=== PATIENT | female | born 1995 | race American Indian/Alaskan Native ===

== ENCOUNTER 2016-10-09 06:43 | Emergency (ER) | payer SELFPAY ==
[2016-10-09] MEDS ORDERED: TYLENOL PO ONE (06:55)
[2016-10-09] MEDS ORDERED: ZOFRAN ONE (07:41)
[2016-10-09] MEDS ORDERED: NACL 0.9% 500 ML 500 ML ONE (07:41)
[2016-10-09] MEDS ORDERED: ZOFRAN IV ONE (07:54)
[2016-10-09] MEDS ORDERED: NACL 0.9% 500 ML 500 ML IV ONE (07:54)
[2016-10-09 08:01] LABS: Basophils % (Auto) 0.3 % (0.0-1.8); Eosinophils % (Auto) 0.5 % (0.0-4.3); Hematocrit 32.5 % (30.3-42.9); Hemoglobin 10.7 gm/dl (10.1-14.3); Mean Corpuscular HGB Conc 33 % (30-34); Mean Corpuscular Volume 71 fl (79-97); Platelet Count 408 K/mm3 (140-440); Red Blood Count 4.59 M/mm3 (3.65-5.03); Red Cell Distribution Width 17.5 % (13.2-15.2); White Blood Count 9.7 K/mm3 (4.5-11.0)
[2016-10-09 08:05] LABS: Mean Corpuscular Hemoglobin 23 pg (28-32)
--- NOTE | 2016-10-09 08:42 | Emergency Department Report ---
ED Female HPI - General Chief complaint: Vaginal Bleeding Stated complaint: VAGINAL BLEEDING/POSS MISSCARRIAGE Time Seen by Provider: 10/09/16 08:41 Source: patient, RN notes reviewed Mode of arrival: Ambulatory Limitations: No Limitations - History of Present Illness Initial comments: This is a 21-year-old female. She is previously unknown to me. She is 2, para 1. Last menstrual period is August 07. 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 It got worse today at 5:00 AM. Mild nausea and vomiting, vomited times once. No chest pain or shortness of breath. No right lower quadrant pain. Patient denies irritative and obstructive urinary symptoms. Reports vaginal bleeding is improving, prior to improvement, she reports large blood and large clots. MD Complaint: vaginal bleeding, pelvic pain -: Gradual Location: suprapubic Severity: moderate Quality: cramping Consistency: intermittent Improves with: none Worsens with: none Are you Now?: Yes Associated Symptoms: vaginal bleeding, abdominal pain, nausea/vomiting. denies : vaginal discharge - Related Data Sexually active: Yes Previous Rx's Medication Instructions Recorded Last Taken Type Misoprostol [Cytotec] 400 mcg PO Q4HR #4 tablet 10/09/16 Unknown Rx Ondansetron [Zofran Odt] 4 mg PO QID PRN #20 tab.rapdis 10/09/16 Unknown Rx Ferrous Sulfate [Feosol 325 MG tab] 325 mg PO BID #60 tablet 10/11/16 Unknown Rx Allergies Allergy/AdvReac Type Severity Reaction Status Date / Time No Known Allergies Allergy Verified 10/09/16 06:50 ED Review of Systems ROS: Stated complaint: VAGINAL BLEEDING/POSS MISSCARRIAGE Other details as noted in HPI Constitutional: malaise. denies: fever Eyes: denies: vision change Respiratory: denies: cough Cardiovascular: denies: chest pain Gastrointestinal: vomiting Genitourinary: abnormal menses Musculoskeletal: denies: back pain Skin: denies: lesions Neurological: denies: headache Psychiatric: anxiety ED Past Medical Hx - Past Medical History Previous Medical History?: No - Surgical History Past Surgical History?: No - Social History Smoking Status: Current Some Day Smoker Substance Use Type: None - Medications Home Medications: Home Medications Medication Instructions Recorded Confirmed Last Taken Type Misoprostol [Cytotec] 400 mcg PO Q4HR #4 tablet 10/09/16 Unknown Rx Ondansetron [Zofran Odt] 4 mg PO QID PRN #20 tab.rapdis 10/09/16 Unknown Rx Ferrous Sulfate [Feosol 325 MG tab] 325 mg PO BID #60 tablet 10/11/16 Unknown Rx ED Physical Exam - General Limitations: No Limitations General appearance: alert, in no apparent distress - Head Head exam: Present: atraumatic, normocephalic - Eye Eye exam: Present: normal appearance, EOMI. Absent: nystagmus - ENT ENT exam: Present: normal exam, normal orophraynx, mucous membranes moist, normal external ear exam - Neck Neck exam: Present: normal inspection, full ROM. Absent: tenderness, meningismus - Respiratory Respiratory exam: Present: normal lung sounds bilaterally. Absent: respiratory distress, wheezes, rales, rhonchi, stridor, chest wall tenderness - Cardiovascular Cardiovascular Exam: Present: regular rate, normal rhythm, normal heart sounds. Absent: bradycardia, tachycardia, irregular rhythm, systolic murmur, diastolic murmur, rubs, gallop - GI/Abdominal GI/Abdominal exam: Present: soft, normal bowel sounds. Absent: distended, tenderness, guarding, rebound, rigid, pulsatile mass - External exam: Present: normal external exam Speculum exam: Present: vaginal bleeding, tissue (large clots, tissue noted in the vaginal vault. There is mild uterine tenderness.During the gynecologic exam , I am escorted by nurse Melissa Roe), other - Extremities Exam Extremities exam: Present: normal inspection, full ROM, normal capillary refill. Absent: tenderness, pedal edema, joint swelling, calf tenderness - Back Exam Back exam: Present: normal inspection, full ROM. Absent: tenderness, CVA tenderness (R), CVA tenderness (L), muscle spasm, paraspinal tenderness, vertebral tenderness - Neurological Exam Neurological exam: Present: alert, oriented X3, normal gait, other (Extraocular movements intact. Tongue midline. No facial droop. Facial sensation intact to light touch in the V1, V2, V3 distribution bilaterally. 5 and 5 strength in 4 extremities.. Sensation is intact to light touch in 4 extremities.). Absent : motor sensory deficit - Psychiatric Psychiatric exam: Present: normal affect, normal mood - Skin Skin exam: Present: warm, dry, intact, normal color. Absent: rash ED Course Vital Signs 10/09/16 10/09/16 10/09/16 06:50 07:51 12:38 Temperature 98.5 F Pulse Rate 64 69 70 Respiratory 18 18 16 Rate Blood Pressure 118/64 Blood Pressure 127/67 163/87 [Left] O2 Sat by Pulse 100 99 99 Oximetry - Reevaluation(s) Reevaluation #1: 10/09/16 12:17 Differential diagnosis: Miscarriage, inevitable miscarriage, threatened miscarriage Assessment and plan: 21-year-old female with vaginal bleeding, history of passing large clots. Her gynecologic examination, there is active oozing, and tissue noted in the vault. She is suctioned aggressively with a Yankauer catheter. There is no active large fine hemorrhage. She is hemodynamically stable with normal vital signs, normal laboratory studies. She has some uterine tenderness, I would expect this given that she is having an active miscarriage. The physical exam ultrasound findings and case are presented to the assistant purchasing manager front line supervisor, Dr. Rosenberg. He recommends misoprostel, 400 mg every 4 hours for a total of 3 doses. The patient is instructed to return in 48 hours for repeat physical exam, quantitative hCG, and pelvic ultrasound. She is instructed to avoid heavy lifting and strenuous physical activity as well as sexual activity. Return precautions were extensively reviewed. Reevaluation #2: 10/09/16 12:19 Urinalysis is appreciated, given that patient has active bleeding, clots and tissue in the vault, the WBCs in the urine most likely coming from contamination. Given the overall clinical picture, I don't believe she requires antibiotics. ED Medical Decision Making - Lab Data Result diagrams: 10/09/16 07:22 Vital Signs 10/09/16 10/09/16 06:50 07:51 Temperature 98.5 F Pulse Rate 64 69 Respiratory 18 18 Rate Blood Pressure 118/64 Blood Pressure 127/67 [Left] O2 Sat by Pulse 100 99 Oximetry Lab Results 10/09/16 10/09/16 10/09/16 Range/Units 07:22 07:22 07:22 WBC 9.7 (4.5-11.0) K/mm3 RBC 4.59 (3.65-5.03) M/mm3 Hgb 10.7 (10.1-14.3) gm/dl Hct 32.5 (30.3-42.9) % MCV 71 L (79-97) fl MCH 23 L (28-32) pg MCHC 33 (30-34) % RDW 17.5 H (13.2-15.2) % Plt Count 408 (140-440) K/mm3 Lymph % (Auto) 16.5 (13.4-35.0) % [place] % (Auto) 6.9 (0.0-7.3) % Eos % (Auto) 0.5 (0.0-4.3) % Baso % (Auto) 0.3 (0.0-1.8) % Lymph # 1.6 (1.2-5.4) K/mm3 [place] # 0.7 (0.0-0.8) K/mm3 Eos # 0.0 (0.0-0.4) K/mm3 Baso # 0.0 (0.0-0.1) K/mm3 Seg Neutrophils % 75.8 H (40.0-70.0) % Seg Neutrophils # 7.4 (1.8-7.7) K/mm3 HCG, Quant 397305 H (0-4) mIU/mL Urine Color (Yellow) Urine Turbidity (Clear) Urine pH (5.0-7.0) Ur Specific [place] (1.003-1.030) Urine Protein (Negative) mg/dL Urine Glucose (UA) (Negative) mg/dL Urine Ketones (Negative) mg/dL Urine Blood (Negative) Urine Nitrite (Negative) Urine Bilirubin (Negative) Urine Urobilinogen (<2.0) mg/dL Ur Leukocyte Esterase (Negative) Urine WBC (Auto) (0.0-6.0) /HPF Urine RBC (Auto) (0.0-6.0) /HPF U Epithel Cells (Auto) (0-13.0) /HPF Urine Bacteria (Auto) (Negative) /HPF Urine Mucus /HPF Blood Type A POSITIVE Antibody Screen Negative 10/09/16 Range/Units Unknown WBC (4.5-11.0) K/mm3 RBC (3.65-5.03) M/mm3 Hgb (10.1-14.3) gm/dl Hct (30.3-42.9) % MCV (79-97) fl MCH (28-32) pg MCHC (30-34) % RDW (13.2-15.2) % Plt Count (140-440) K/mm3 Lymph % (Auto) (13.4-35.0) % [place] % (Auto) (0.0-7.3) % Eos % (Auto) (0.0-4.3) % Baso % (Auto) (0.0-1.8) % Lymph # (1.2-5.4) K/mm3 [place] # (0.0-0.8) K/mm3 Eos # (0.0-0.4) K/mm3 Baso # (0.0-0.1) K/mm3 Seg Neutrophils % (40.0-70.0) % Seg Neutrophils # (1.8-7.7) K/mm3 HCG, Quant (0-4) mIU/mL Urine Color Yellow (Yellow) Urine Turbidity Clear (Clear) Urine pH 5.0 (5.0-7.0) Ur Specific [place] 1.016 (1.003-1.030) Urine Protein 30 mg/dl (Negative) mg/dL Urine Glucose (UA) 50 (Negative) mg/dL Urine Ketones Tr (Negative) mg/dL Urine Blood Lg (Negative) Urine Nitrite Neg (Negative) Urine Bilirubin Neg (Negative) Urine Urobilinogen < 2.0 (<2.0) mg/dL Ur Leukocyte Esterase Neg (Negative) Urine WBC (Auto) 45.0 H (0.0-6.0) /HPF Urine RBC (Auto) > 182.0 (0.0-6.0) /HPF U Epithel Cells (Auto) < 1.0 (0-13.0) /HPF Urine Bacteria (Auto) 1+ (Negative) /HPF Urine Mucus 3+ /HPF Blood Type Antibody Screen - Radiology Data Radiology results: report reviewed, image reviewed Transvaginal ultrasound demonstrates no obvious intrauterine . Endometrium is thickened and complex. Could represent spontaneous with retained products of conception. Ectopic not entirely excluded at this time. Critical care attestation.: If time is entered above; I have spent that time in minutes in the direct care of this critically ill patient, excluding procedure time. ED Disposition Clinical Impression: Miscarriage Disposition: DISCHARGED TO HOME OR SELFCARE Is pt being admited?: No Does the pt Need Aspirin: No Condition: Stable Instructions: Spontaneous Miscarriage (ED) Additional Instructions: Laboratory studies, ultrasound, physical exam suggested miscarriage. Rest and avoid heavy lifting. Did not have sex until a assistant purchasing manager instruction that it is safe to do so. Return in 48 hours for repeat ultrasound, blood tests, physical examination. Return to the ER right away with new pain, worsened pain , migration of pain, bleeding more than 2 pads soaked through and through per hour, dizziness, lightheadedness, chest pain, shortness of breath, intractable nausea or vomiting, inability to tolerate liquid feeds. Cultures were sent today, results to be available next 3-5 days, please have a primary care doctor contact the medical records department to obtain culture results. Prescriptions: Misoprostol [Cytotec] 400 mcg PO Q4HR #4 tablet Ondansetron [Zofran Odt] 4 mg PO QID PRN #20 tab.rapdis PRN Reason: Nausea Referrals: PRIMARY CAREMD [Primary Care Provider] - 3-5 Days DEANDRA ROSENBERG MD [Staff Physician] - 3-5 Days [facility] [Provider Group] - 3-5 Days [facility] [Provider Group] - 3-5 Days
[2016-10-09 09:51] LABS: Bacteria,Urine 1+ /HPF (Negative); Bilirubin,Urine NEG (Negative); Blood,Urine LG (Negative); Ketones,Urine TR mg/dL (Negative); Leukocyte Esterase,Urine NEG (Negative); Mucus,Urine 3+ /HPF; Nitrite,Urine NEG (Negative); Urobilinogen,Urine < 2.0 mg/dL (<2.0)
[2016-10-09 09:57] LABS: RBC,Urine > 182.0 /HPF (0.0-6.0)
--- NOTE | 2016-10-09 10:14 | Ultrasound Report ---
ULTRASOUND OB LESS THAN 14 WEEKS FETUS ULTRASOUND OB TRANSVAGINAL HISTORY: Vaginal bleeding during . Beta hCG level of 284133. FINDINGS: No comparison. Transabdominal and transvaginal ultrasound imaging with color Doppler interrogation was performed. The uterus measures 11.4 x 5.8 x 6.0 cm. No uterine mass. The endometrial stripe is thickened and complex measuring 2.2 cm. No intrauterine is visualized. The right ovary is unremarkable measuring 2.6 x 1.6 x 1.7 cm. The left ovary is not visualized secondary to excessive bowel gas. No pelvic fluid collection. Impression: No intrauterine is visualized. The endometrium is thickened and complex. This could represent spontaneous with retained products of conception. Please note an ectopic is not entirely excluded at this time. Please correlate with the patient's clinical presentation.
--- NOTE | 2016-10-09 10:14 | Ultrasound Report ---
ULTRASOUND OB LESS THAN 14 WEEKS FETUS ULTRASOUND OB TRANSVAGINAL HISTORY: Vaginal bleeding during . Beta hCG level of 378515. FINDINGS: No comparison. Transabdominal and transvaginal ultrasound imaging with color Doppler interrogation was performed. The uterus measures 11.4 x 5.8 x 6.0 cm. No uterine mass. The endometrial stripe is thickened and complex measuring 2.2 cm. No intrauterine is visualized. The right ovary is unremarkable measuring 2.6 x 1.6 x 1.7 cm. The left ovary is not visualized secondary to excessive bowel gas. No pelvic fluid collection. Impression: No intrauterine is visualized. The endometrium is thickened and complex. This could represent spontaneous with retained products of conception. Please note an ectopic is not entirely excluded at this time. Please correlate with the patient's clinical presentation.
[2016-10-09] MEDS ORDERED: CYTOTEC PO ONE (11:33)
[2016-10-09 12:39] VITALS: BP 163/87
== END 2016-10-09 12:39 | disposition home or self-care (01) ==
LOC: ED 06:43
DX: O03.9 Complete or unspecified spontaneous abortion without complication (principal); Z3A.00 Weeks of gestation of pregnancy not specified
CPT/HCPCS: 36415; 76801; 76817; 81001; 84702; 85025; 86850; 86900; 86901; 87086; 96361; 96374; 99284; J2405; J7040

== ENCOUNTER 2016-10-11 08:42 | Emergency (ER) | payer SELFPAY ==
[2016-10-11 09:03] VITALS: BP 125/70
--- NOTE | 2016-10-11 09:14 | Emergency Department Report ---
ED Abdominal Pain HPI - General Chief Complaint: Vaginal Bleeding Stated Complaint: ER FOLLOW UP Time Seen by Provider: 10/11/16 09:08 Source: patient Mode of arrival: Ambulatory Limitations: No Limitations - Related Data Previous Rx's Medication Instructions Recorded Last Taken Type Misoprostol [Cytotec] 400 mcg PO Q4HR #4 tablet 10/09/16 Unknown Rx Ondansetron [Zofran Odt] 4 mg PO QID PRN #20 tab.rapdis 10/09/16 Unknown Rx Allergies Allergy/AdvReac Type Severity Reaction Status Date / Time No Known Allergies Allergy Verified 10/09/16 06:50 ED Review of Systems ROS: Stated complaint: ER FOLLOW UP Other details as noted in HPI ED Past Medical Hx - Past Medical History Previous Medical History?: Yes Additional medical history: Miscarriage, Vaginal deliver 07-08-2011 - Surgical History Past Surgical History?: No - Social History Smoking Status: Never Smoker Substance Use Type: None - Medications Home Medications: Home Medications Medication Instructions Recorded Confirmed Last Taken Type Misoprostol [Cytotec] 400 mcg PO Q4HR #4 tablet 10/09/16 Unknown Rx Ondansetron [Zofran Odt] 4 mg PO QID PRN #20 tab.rapdis 10/09/16 Unknown Rx ED Physical Exam - General Limitations: No Limitations ED Course Vital Signs 10/11/16 08:59 Temperature 98.7 F Pulse Rate 72 Respiratory 18 Rate Blood Pressure 125/70 O2 Sat by Pulse 99 Oximetry Critical care attestation.: If time is entered above; I have spent that time in minutes in the direct care of this critically ill patient, excluding procedure time. ED Disposition Condition: Stable
--- NOTE | 2016-10-11 09:21 | Emergency Department Report ---
ED Recheck HPI - General Chief Complaint: Vaginal Bleeding Stated Complaint: ER FOLLOW UP Time Seen by Provider: 10/11/16 09:08 Source: patient Mode of arrival: Ambulatory Limitations: No Limitations - History of Present Illness Initial Comments: Patient was seen here on 10/10/2015 for miscarriage and was given Cytotec and told to return in 48 hours for repeat labs. She says she is not having any vaginal bleeding nor is she having any abdominal pain. No urinary burning frequency or urgency. No back pain. Patient does have an SCRATCHER at [facility]. Denies any fever or chills. She was given Cytotec to take every 4 hours times for which she says she completed and Zofran for nausea. Denies any nausea vomiting at present. Complaint: wound re-check Onset/Timin -: days(s) Initial Visit For: other (miscarriage) Returns Today for: CBOAL Description of Abnormal Result: here for recheck on CBC and quantitative hCG Symptoms Since Prior Visit: improved Context: planned re-check Associated Symptoms: none Treatments Prior to Arrival: other medications (cytotec and zofran) - Related Data Previous Rx's Medication Instructions Recorded Last Taken Type Misoprostol [Cytotec] 400 mcg PO Q4HR #4 tablet 10/09/16 Unknown Rx Ondansetron [Zofran Odt] 4 mg PO QID PRN #20 tab.rapdis 10/09/16 Unknown Rx Ferrous Sulfate [Feosol 325 MG tab] 325 mg PO BID #60 tablet 10/11/16 Unknown Rx Allergies Allergy/AdvReac Type Severity Reaction Status Date / Time No Known Allergies Allergy Verified 10/09/16 06:50 ED Review of Systems ROS: Stated complaint: ER FOLLOW UP Other details as noted in HPI Comment: All other systems reviewed and negative Constitutional: denies: chills, fever Respiratory: no symptoms reported Cardiovascular: denies: chest pain, palpitations, edema, syncope Endocrine: no symptoms reported Gastrointestinal: denies: abdominal pain, nausea, vomiting, diarrhea Genitourinary: denies: urgency, dysuria, frequency, hematuria, discharge Musculoskeletal: denies: back pain, arthralgia Skin: denies: rash Neurological: denies: headache ED Past Medical Hx - Past Medical History Previous Medical History?: Yes Additional medical history: Miscarriage, Vaginal deliver 07-08-2011 - Surgical History Past Surgical History?: No - Family History Family history: no significant - Social History Smoking Status: Never Smoker Substance Use Type: None - Medications Home Medications: Home Medications Medication Instructions Recorded Confirmed Last Taken Type Misoprostol [Cytotec] 400 mcg PO Q4HR #4 tablet 10/09/16 Unknown Rx Ondansetron [Zofran Odt] 4 mg PO QID PRN #20 tab.rapdis 10/09/16 Unknown Rx Ferrous Sulfate [Feosol 325 MG tab] 325 mg PO BID #60 tablet 10/11/16 Unknown Rx ED Physical Exam - General Limitations: No Limitations General appearance: alert, in no apparent distress - Head Head exam: Present: atraumatic, normocephalic, normal inspection - Eye Eye exam: Present: normal appearance, PERRL, EOMI Pupils: Present: normal accommodation - Neck Neck exam: Present: normal inspection, full ROM. Absent: tenderness - Respiratory Respiratory exam: Present: normal lung sounds bilaterally. Absent: respiratory distress, chest wall tenderness - Cardiovascular Cardiovascular Exam: Present: regular rate, normal rhythm, normal heart sounds - GI/Abdominal GI/Abdominal exam: Present: soft, normal bowel sounds. Absent: distended, tenderness, guarding, rebound, rigid - Rectal Rectal exam: Present: normal inspection - External exam: Present: normal external exam. Absent: erythema, swelling, lesions, lacerations, ecchymosis, bleeding (scant amount of blood noted on pad) Speculum exam: Present: normal speculum exam. Absent: erythema, vaginal discharge, cervical discharge, vaginal bleeding (scant amount of vaginal bleeding noted in vaginal vault), foreign body, tissue, laceration Bi-manual exam: Present: normal bi-manual exam. Absent: cervical motion tendernes, adnexal tenderness, adnexal mass, uterine enlargement, uterine tenderness - Expanded Exam Expanded Female exam: Absent: vaginal laceration, tissue present in vagina, herpetic lesions, vulvar erythema, vulvar tenderness, foreign body External exam: Present: normal Amniotic fluid: Present: none Speculum exam: Present: cervical OS closed, vaginal bleeding (scant vaginal bleeding). Absent: vaginal discharge - Extremities Exam Extremities exam: Present: normal inspection, full ROM, normal capillary refill. Absent: tenderness, pedal edema, joint swelling, calf tenderness - Back Exam Back exam: Present: normal inspection, full ROM. Absent: tenderness, CVA tenderness (R), CVA tenderness (L), muscle spasm, paraspinal tenderness, vertebral tenderness, rash noted - Neurological Exam Neurological exam: Present: alert, oriented X3 - Psychiatric Psychiatric exam: Present: normal affect, normal mood - Skin Skin exam: Present: warm, dry, intact, normal color. Absent: rash ED Course Vital Signs 10/11/16 08:59 Temperature 98.7 F Pulse Rate 72 Respiratory 18 Rate Blood Pressure 125/70 O2 Sat by Pulse 99 Oximetry Lab Results 10/11/16 10/11/16 10/11/16 Range/Units 09:38 09:38 09:38 WBC 9.3 (4.5-11.0) K/mm3 RBC 4.17 (3.65-5.03) M/mm3 Hgb 9.7 L (10.1-14.3) gm/dl Hct 30.2 L (30.3-42.9) % MCV 72 L (79-97) fl MCH 23 L (28-32) pg MCHC 32 (30-34) % RDW 17.5 H (13.2-15.2) % Plt Count 369 (140-440) K/mm3 Lymph % (Auto) 16.9 (13.4-35.0) % [place] % (Auto) 6.0 (0.0-7.3) % Eos % (Auto) 0.4 (0.0-4.3) % Baso % (Auto) 0.4 (0.0-1.8) % Lymph # 1.6 (1.2-5.4) K/mm3 [place] # 0.6 (0.0-0.8) K/mm3 Eos # 0.0 (0.0-0.4) K/mm3 Baso # 0.0 (0.0-0.1) K/mm3 Seg Neutrophils % 76.3 H (40.0-70.0) % Seg Neutrophils # 7.1 (1.8-7.7) K/mm3 HCG, Qual Positive (Negative) HCG, Quant 31923 H (0-4) mIU/mL - Reevaluation(s) Reevaluation #1: 10/11/16 09:39 She is stable and she is asymptomatic awaiting blood work. Reevaluation #2: 10/11/16 11:00 Lab Results 10/11/16 10/11/16 10/11/16 Range/Units 09:38 09:38 09:38 WBC 9.3 (4.5-11.0) K/mm3 RBC 4.17 (3.65-5.03) M/mm3 Hgb 9.7 L (10.1-14.3) gm/dl Hct 30.2 L (30.3-42.9) % MCV 72 L (79-97) fl MCH 23 L (28-32) pg MCHC 32 (30-34) % RDW 17.5 H (13.2-15.2) % Plt Count 369 (140-440) K/mm3 Lymph % (Auto) 16.9 (13.4-35.0) % [place] % (Auto) 6.0 (0.0-7.3) % Eos % (Auto) 0.4 (0.0-4.3) % Baso % (Auto) 0.4 (0.0-1.8) % Lymph # 1.6 (1.2-5.4) K/mm3 [place] # 0.6 (0.0-0.8) K/mm3 Eos # 0.0 (0.0-0.4) K/mm3 Baso # 0.0 (0.0-0.1) K/mm3 Seg Neutrophils % 76.3 H (40.0-70.0) % Seg Neutrophils # 7.1 (1.8-7.7) K/mm3 HCG, Qual Positive (Negative) HCG, Quant 82816 H (0-4) mIU/mL ED Recheck MDM - Differential Diagnosis Recheck of Abnormal Lab (patient here for recheck after miscarriage and given Cytotec. Repeat pelvic exam done along with CBC and hCG Quant) - Medical Decision Making Case was discussed with Dr. KYLE ED course. Patient here for recheck after miscarriage and taking in Cytotec for 4 doses. She was told to return told to return in 48 hours for recheck. CBC reflected that she is anemic without any symptoms. H&H on 09 October 2016 was 10.7 and 32.2 and today it is mildly decreased to 9.7 and 30.2. Serum hCG on October 09, 2016 [place] [id number] [place] [id number] ,trended down. Discussed with patient that she has mild anemia and will be treated with iron supplement. She was also given discharge instruction and food that richen iron. Patient says she has an SCRATCHER at [facility] and I told her to call today to schedule appointment for follow-up visit spontaneous miscarriage. Exam revealed minimal vaginal bleeding in vaginal vault but no active bleeding from cervical os. She has no cervical motion tenderness and no adnexal tenderness. External vaginal area normal. Patient discharged home with prescription for ferrous sulfate. Encourage her to drink plenty of fluids and to make sure that she follow up with her SCRATCHER. Critical care attestation.: If time is entered above; I have spent that time in minutes in the direct care of this critically ill patient, excluding procedure time. ED Disposition Clinical Impression: History of miscarriage, not currently , Anemia due to acute blood loss Disposition: DISCHARGED TO HOME OR SELFCARE Is pt being admited?: No Does the pt Need Aspirin: No Condition: Stable Instructions: Spontaneous Miscarriage (ED), Iron Rich Diet (ED), Anemia (ED) Additional Instructions: Please follow-up with your SCRATCHER at [facility]. You Are mildly anemic so please take iron pill as prescribed. Prescriptions: Ferrous Sulfate [Feosol 325 MG tab] 325 mg PO BID #60 tablet Referrals: Your, SCRATCHER at [facility] [Other] - 2-3 Days Forms: Accompanied Note, Work/School Release Form(ED)
[2016-10-11 09:48] LABS: Basophils % (Auto) 0.4 % (0.0-1.8); Eosinophils % (Auto) 0.4 % (0.0-4.3); Hematocrit 30.2 % (30.3-42.9); Hemoglobin 9.7 gm/dl (10.1-14.3); Mean Corpuscular HGB Conc 32 % (30-34); Mean Corpuscular Volume 72 fl (79-97); Platelet Count 369 K/mm3 (140-440); Red Blood Count 4.17 M/mm3 (3.65-5.03); Red Cell Distribution Width 17.5 % (13.2-15.2); White Blood Count 9.3 K/mm3 (4.5-11.0)
[2016-10-11 10:03] LABS: Mean Corpuscular Hemoglobin 23 pg (28-32)
== END 2016-10-11 12:04 | disposition home or self-care (01) ==
LOC: ED 08:42
DX: D62 Acute posthemorrhagic anemia (principal); Z87.59 Personal history of other complications of pregnancy, childbirth and the puerperium
CPT/HCPCS: 36415; 84702; 84703; 85025; 99283

== ENCOUNTER 2017-09-19 06:34 | Inpatient (IN) | payer MEDICAID ==
[2017-09-19] MEDS ORDERED: SUBLIMAZE IV PRN ×2 (07:18→09:00)
[2017-09-19] MEDS ORDERED: ZOFRAN IV PRN ×2 (08:00→12:12)
[2017-09-19] MEDS ORDERED: PITOCin/NS 20 UNIT/1000ML DRIP 20 UNITS/1,000 ML BAG IV SCH ×3 (08:00→13:00)
[2017-09-19] MEDS ORDERED: NORMOSOL-R PH 7.4 1,000 ML IV SCH ×2 (08:00→09:00)
[2017-09-19] MEDS ORDERED: XYLOCAINE 2% INFILTRATI NR (08:00)
[2017-09-19] MEDS ORDERED: MINERAL OIL PO PRN ×2 (08:00→08:15)
[2017-09-19] MEDS ORDERED: STADOL IV PRN (08:00)
[2017-09-19] MEDS ORDERED: BRETHINE SUB-Q PRN ×2 (08:00→08:15)
[2017-09-19] MEDS ORDERED: BRETHINE IVP PRN ×2 (08:00→08:15)
[2017-09-19] MEDS ORDERED: POLYCILLIN/NS 2 GM/100 ML 2 GM/100 ML BAG IV NR (08:00)
[2017-09-19] MEDS ORDERED: ePHEDrine SULFATE IV PRN ×3 (08:00→10:00)
--- NOTE | 2017-09-19 08:11 | History and Physical Report ---
History of Present Illness Date of examination: 09/19/17 Date of admission: 09/19/17 06:35 Chief complaint: Labor History of present illness: Pt is a 22yo BF EDC 09/26/17; EGA 39 0/7 weeks presents to L&D complaining of RUC's q 3-4 mins. She received care at [facility] since 20 weeks. course has been unremarkable and GBS is negative. Past History Past Medical History: no pertinent history Past Surgical History: no surgical history Family/Genetic History: none Social history: no significant social history, single - Obstetrical History Expected Date of Delivery: 09/26/17 Actual Gestation: 39 Week(s) 0 Day(s) : 3 Medications and Allergies Allergies Allergy/AdvReac Type Severity Reaction Status Date / Time No Known Allergies Allergy Verified 10/09/16 06:50 Home Medications Medication Instructions Recorded Confirmed Last Taken Type Misoprostol [Cytotec] 400 mcg PO Q4HR #4 tablet 10/09/16 Unknown Rx Ondansetron [Zofran Odt] 4 mg PO QID PRN #20 tab.rapdis 10/09/16 Unknown Rx Ferrous Sulfate [Feosol 325 MG tab] 325 mg PO BID #60 tablet 10/11/16 Unknown Rx Active Meds: Active Medications Butorphanol Tartrate (Stadol) 2 mg IV Q2H PRN PRN Reason: Pain , Severe (7-10) Ephedrine Sulfate (Ephedrine Sulfate) 10 mg IV Q2M PRN PRN Reason: Hypotension Fentanyl (Sublimaze) 100 mcg IV Q2H PRN PRN Reason: Labor Pain Ampicillin Sodium (Polycillin/Ns 2 Gm/100 Ml) 2 gm in 100 mls @ 100 mls/hr IV ONCE NR; Protocol Stop: 09/19/17 11:00 Parenteral Electrolytes (Normosol-R Ph 7.4) 1,000 mls @ 125 mls/hr IV DIRECT SCHUYLER Oxytocin/Sodium Chloride (Pitocin/Ns 20 Unit/1000ml Drip) 20 units in 1,000 mls @ 125 mls/hr IV DIRECT SCHUYLER Lidocaine (Xylocaine 2%) 20 ml INFILTRATI ONCE NR Stop: 09/20/17 07:59 Mineral Oil (Mineral Oil) 30 ml PO QHS PRN PRN Reason: Constipation Ondansetron HCl (Zofran) 4 mg IV Q8H PRN PRN Reason: Nausea And Vomiting Terbutaline Sulfate (Brethine) 0.25 mg SUB-Q ONCE PRN PRN Reason: Hyperstimulation/Hypertonicity Terbutaline Sulfate (Brethine) 0.25 mg IVP ONCE PRN PRN Reason: Hyperstimulation/Hypertonicity Review of Systems All systems: negative - Vital Signs Vital signs: Vital Signs Temp Resp 98.6 F 18 09/19/17 07:11 09/19/17 07:11 Temp Pulse Resp BP Pulse Ox 98.6 F 66 18 126/77 100 09/19/17 07:11 09/19/17 08:09 09/19/17 07:11 09/19/17 08:03 09/19/17 08:09 - Physical Exam Breasts: Positive: deferred Cardiovascular: Regular rate Lungs: Positive: Clear to auscultation Abdomen: Positive: normal appearance Genitourinary (Female): Positive: normal external genitalia Vagina: Positive: normal moisture Uterus: Positive: enlarged Extremities: Positive: normal - Obstetrical FHR: category 1 Uterine Contraction Monitor Mode: External Cervical Dilatation: 4.5 (per nurse) Cervical Effacement Percentage: 70 (per nirse) station: -2 Uterine Contraction Pattern: Regular Uterine Tone Measurement Phase: Contraction Uterine Contraction Intensity: Moderate Results Result Diagrams: 09/19/17 07:35 All other labs normal. Assessment and Plan - Patient Problems (1) 39 weeks gestation of Onset Date: 09/19/17 Current Visit: Yes Status: Acute Plan to address problem: A: IUP @ 39 0/7 weeks in labor P: Admit to L&D for expectant vaginal delivery Obtain records
[2017-09-19] MEDS ORDERED: XYLOCAINE 2% INFILTRATI ONE (08:15)
[2017-09-19 08:52] LABS: Hemoglobin 8.3 gm/dl (10.1-14.3); Mean Corpuscular HGB Conc 31 % (30-34); Platelet Count 410 K/mm3 (140-440); Red Blood Count 4.44 M/mm3 (3.65-5.03)
[2017-09-19] MEDS ORDERED: PITOCin/NS 30 UNIT/500ML 30 UNITS/500 ML BAG IV SCH (09:00)
[2017-09-19] MEDS ORDERED: NARCAN 0.4 MG/1 ML IV PRN (09:00)
[2017-09-19 09:18] LABS: Mean Corpuscular Hemoglobin 19 pg (28-32); Mean Corpuscular Volume 61 fl (79-97); Red Cell Distribution Width 20.2 % (13.2-15.2)
--- NOTE | 2017-09-19 09:26 | Anesthesia Consultation ---
Anesthesia Consult and Med Hx Date of service: 09/19/17 - Airway Anesthetic Teeth Evaluation: Good ROM Head & Neck: Adequate Mental/Hyoid Distance: Adequate Mallampati Class: Class II Intubation Access Assessment: Probably Good - Pre-Operative Health Status ASA Pre-Surgery Classification: ASA2 Proposed Anesthetic Plan: Epidural, Spinal - Pulmonary Hx Asthma: No COPD: No Hx Pneumonia: No - Cardiovascular System Hx Hypertension: No - Central Nervous System Hx Seizures: No Hx Psychiatric Problems: No - Endocrine Hx Renal Disease: No Hx End Stage Renal Disease: No Hx Hypothyroidism: No Hx Hyperthyroidism: No - Hematic Hx Anemia: Yes Hx Sickle Cell Disease: Yes (sickle cell trait)
[2017-09-19] MEDS ORDERED: NARCAN 2 MG/2 ML IV PRN (10:00)
[2017-09-19] MEDS ORDERED: fentaNYL-BUPIV 2 MCG/ML-0.125% 200 MCG/100 ML BAG EPIDURAL SCH (10:30)
--- NOTE | 2017-09-19 12:11 | Procedure Note ---
OB Delivery Note - Delivery Date of Delivery: 09/19/17 Surgeon: PATRICIA LI Estimated blood loss: 100cc - Vaginal Delivery presentation: vertex Delivery position: OA Intrapartum events: meconium, mult.variable deceleratio Delivery induction: none Delivery augmentation: rupture of membranes Delivery monitor: external FHT, external uterine Route of delivery: vacuum extraction (2 pulls, no pop-offs) Indicators for instrumentation: nonreassuring FHR tracing Delivery placenta: spontaneous Delivery cord: nuchal cord (x1), 3 umbilical vessels Episiotomy: none Delivery laceration: none Anesthesia: epidural Delivery comments: Infant delivered OA with the aid of the vacuum - 2 pulls, no pop-offs, and handed to awaiting Peds/RT in attendance. - Infant A at 1 minute: 8 at 5 minutes: 9 Infant Gender: Male (2571gms)
[2017-09-19] MEDS ORDERED: PHENERGAN PO PRN (12:12)
[2017-09-19] MEDS ORDERED: NORCO 5/325 PO PRN (12:12)
[2017-09-19] MEDS ORDERED: MILK OF MAGNESIA PO PRN (12:12)
[2017-09-19] MEDS ORDERED: TYLENOL PO PRN (12:12)
[2017-09-19] MEDS ORDERED: PHENERGAN PR PRN (12:12)
[2017-09-19] MEDS ORDERED: DULCOLAX PR PRN (12:12)
[2017-09-19] MEDS ORDERED: TUCKS PAD TP PRN (12:12)
[2017-09-19] MEDS ORDERED: BENADRYL PO PRN (12:12)
[2017-09-19] MEDS ORDERED: LANSINOH TP PRN (12:12)
[2017-09-19] MEDS ORDERED: SODIUM CHLORIDE FLUSH SYRINGE 10 ML IV SCH (13:00)
[2017-09-19] MEDS: MOTRIN PO SCH ×3 (13:27→23:00)
[2017-09-19] MEDS: COLACE PO SCH (23:00)
[2017-09-19] MEDS: FEOSOL PO SCH (23:00)
[2017-09-20 00:47] LABS: Hematocrit 23.9 % (30.3-42.9)
[2017-09-20] MEDS: MOTRIN PO SCH ×2 (05:50→20:42)
[2017-09-20] MEDS ORDERED: BOOSTRIX IM ONE (06:00)
--- NOTE | 2017-09-20 08:28 | Progress Note ---
Assessment and Plan - Patient Problems (1) 39 weeks gestation of Onset Date: 09/19/17 Current Visit: Yes Status: Resolved (2) (normal spontaneous vaginal delivery) Onset Date: 09/20/17 Current Visit: Yes Status: Resolved Plan to address problem: A: S/P - PPD #1 Doing well Asymptomatic anemia - stable P: May go home today. (3) Anemia Onset Date: 09/20/17 Current Visit: Yes Status: Chronic Qualifiers: Anemia type: iron deficiency Subjective - Subjective Date of service: 09/20/17 Principal diagnosis: s/p - PPD #1 Interval history: Pt is feeling well without complaints. Bleeding improved. Denies dizziness or SOB. Patient reports: appetite normal, voiding normally, pain well controlled, flatus , ambulating normally, no dizzy ambulation, no nauseated [place]: doing well, nursing well, bottle feeding Objective - Vital Signs Latest vital signs: Vital Signs Temp Pulse Resp BP BP Pulse Ox 09/20/17 01:00 98.4 F 83 20 113/55 100 09/19/17 21:46 98.5 F 75 20 103/56 99 09/19/17 17:37 98.8 F 106 H 18 115/62 98 09/19/17 13:50 97.4 F L 64 110/45 09/19/17 13:38 56 L 99/62 09/19/17 13:34 55 L 100 09/19/17 13:29 59 L 100 09/19/17 13:27 97.3 F L 18 09/19/17 13:24 58 L 116/59 100 09/19/17 13:19 59 L 100 09/19/17 13:14 62 100 09/19/17 13:09 62 100 09/19/17 13:08 60 99/61 09/19/17 13:04 67 100 09/19/17 12:59 62 100 09/19/17 12:54 66 100 09/19/17 12:53 71 95/56 09/19/17 12:49 61 100 09/19/17 12:44 89 100 09/19/17 12:39 58 L 100 09/19/17 12:38 57 L 103/55 09/19/17 12:34 64 100 09/19/17 12:29 63 100 09/19/17 12:24 69 100 03/19/18 12:23 96.5 F L 66 18 106/59 03/19/18 12:08 68 122/58 0319/18 11:54 56 L 122/61 /19/18 11:44 62 100 03/19/18 11:39 56 L 100 19/18 11:38 55 L 116/68 0319/18 11:34 59 L 100 09/19/18 11:29 61 100 03/18 11:24 54 L 131/75 100 03/18 11:19 53 L 100 09/19/18 11:18 108 H 48 L 03/18 11:14 55 L 100 09/19/18 11:09 57 L 100 09/19/18 11:08 56 L 132/79 09/19/18 11:04 56 L 100 09/19/18 10:59 64 100 //18 10:54 53 L 132/75 100 09/19/18 10:49 58 L 98 09/19/18 10:48 58 L 88 09/19/18 10:44 67 100 //18 10:40 73 84 09/19/18 10:39 73 100 03/18 10:36 57 L 112/65 09/19/18 10:34 63 117/66 100 //18 10:32 65 115/64 03//18 10:30 66 114/66 /19/18 10:29 69 100 03//18 10:28 68 114/67 //18 10:26 62 113/68 09/19/18 10:24 68 111/67 100 09/19/18 10:23 78 107/64 03/19/18 10:21 66 108/65 03//18 10:19 76 100 03/19/18 10:18 69 106/64 03/19/18 10:17 61 106/59 03/19/18 10:15 75 103/63 /19/18 10:14 75 100 03/19/18 10:13 75 109/65 03//18 10:11 71 115/58 03/19/18 10:08 74 116/55 100 03//18 10:06 71 110/54 09/19/18 10:04 82 115/56 100 03/19/18 10:03 77 108/58 09/19/17 10:01 84 121/68 09/19/17 09:59 64 107/59 100 09/19/17 09:56 61 105/61 09/19/17 09:54 63 113/69 100 09/19/17 09:52 61 114/69 09/19/17 09:50 65 112/66 09/19/17 09:49 83 75 L 09/19/17 09:46 80 126/67 09/19/17 09:44 69 135/60 98 09/19/17 09:42 71 142/78 09/19/17 09:40 91 H 140/74 09/19/17 09:39 77 100 09/19/17 09:38 89 63 L 09/19/17 09:34 79 100 09/19/17 09:29 69 100 09/19/17 09:24 66 100 09/19/17 09:19 64 99 09/19/17 09:14 67 99 09/19/17 09:08 72 100 09/19/17 09:04 71 99 09/19/17 08:59 66 99 09/19/17 08:54 63 98 09/19/17 08:49 69 100 09/19/17 08:44 71 100 09/19/17 08:39 75 99 09/19/17 08:34 71 100 Intake and Output 09/19/17 09/20/17 09/20/17 22:59 06:59 14:59 Intake Total 480 Output Total 500 Balance 480 -500 Intake: Oral 480 Output: Urine 500 Void 500 Other: Total, Intake Amount 480 Total, Output Amount 500 # Voids Void 1 - Exam Breasts: Present: deferred Cardiovascular: Present: Regular rate Lungs: Present: Clear to auscultation Abdomen: Present: normal appearance, soft Uterus: Present: normal, firm, fundal height below umbilicus Extremities: Present: normal - Labs Labs: Abnormal lab results 09/19/17 09/20/17 Range/Units 07:35 00:24 Hgb 8.3 L 7.0 L (10.1-14.3) gm/dl Hct 27.0 L 23.9 L (30.3-42.9) % MCV 61 L (79-97) fl MCH 19 L (28-32) pg RDW 20.2 H (13.2-15.2) % Laboratory Tests 09/19/17 09/19/17 09/19/17 07:35 07:35 07:35 WBC 10.9 RBC 4.44 Hgb 8.3 L Hct 27.0 L MCV 61 L MCH 19 L MCHC 31 RDW 20.2 H Plt Count 410 RPR Nonreactive Hep Bs Antigen Hepatitis C Antibody Blood Type A POSITIVE Antibody Screen Negative 09/19/17 09/19/17 09/20/17 22:55 22:55 00:24 WBC RBC Hgb 7.0 L Hct 23.9 L MCV MCH MCHC RDW Plt Count RPR Hep Bs Antigen Non-reactive Hepatitis C Antibody Non-reactive Blood Type Antibody Screen
[2017-09-20] MEDS ORDERED: PRENATAL VITAMIN PO SCH (10:00)
--- NOTE | 2017-09-20 10:05 | Discharge Summary ---
Providers - Providers Date of Admission: 09/19/17 06:35 Date of discharge: 09/20/17 Attending physician: PATRICIA LI Primary care physician: PATRICIA LI Hospitalization Reason for admission: active labor, IUP at term Delivery: Episiotomy: none Laceration: none Other procedures: none complications: none Discharge diagnosis: IUP at term delivered [place] baby: male Hospital course: Unremarkable. Condition at discharge: Good Disposition: DC-01 TO HOME OR SELFCARE - Discharge Diagnoses (1) 39 weeks gestation of Status: Resolved (2) (normal spontaneous vaginal delivery) Status: Resolved (3) Anemia Status: Chronic Qualifiers: Anemia type: iron deficiency Plan - Discharge Medications Prescriptions: Ferrous Sulfate [Feosol 325 MG tab] 325 mg PO BID #60 tablet Ibuprofen [Motrin 600 MG tab] 600 mg PO Q6HR #30 tablet Vit-Fe Fumar-FA [ Vitamin] 1 each PO QDAY #30 tablet - Provider Discharge Summary Activity: routine, no sex for 6 weeks, no heavy lifting 4 weeks, no strenuous exercise Diet: routine Instructions: routine Additional instructions: [] Smoking cessation referral if applicable(refer to patient education folder for contact #) [] Refer to [facility]'s [facility] Booklet Call your doctor immediately for: * Fever > 100.5 * Heavy vaginal bleeding ( >1 pad per hour) * Severe persistent headache * Shortness of breath * Reddened, hot, painful area to leg or breast * Drainage or odor from incision. * Keep incision clean and dry at all times and follow doctor's instructions regarding bathing/showering - Follow up plan Follow up: PATRICIA LI MD [Primary Care Provider] - 6 Weeks
[2017-09-20] MEDS ORDERED: M-M-R II VACCINE SUB-Q ONE (12:12)
[2017-09-20] MEDS: FEOSOL PO SCH (21:31)
[2017-09-20] MEDS: COLACE PO SCH (21:31)
[2017-09-21] MEDS: FEOSOL PO SCH (12:00)
[2017-09-21] MEDS: COLACE PO SCH (12:00)
[2017-09-21 19:27] VITALS: BP 117/58
== END 2017-09-21 16:30 | disposition home or self-care (01) | DRG 775 ==
LOC: TRG 06:34 → LD 06:35 → OB 13:50
PROVIDERS: ADMIT Obstetrics & Gynecology; ATTEND Obstetrics & Gynecology
PROC: 10D07Z6 Extraction of Products of Conception, Vacuum, Via Natural or Artificial Opening (ICD-10-PCS; principal; 2017-09-19)
PROC: 3E0R3BZ Introduction of Anesthetic Agent into Spinal Canal, Percutaneous Approach (ICD-10-PCS; 2017-09-19)
PROC: 00HU33Z Insertion of Infusion Device into Spinal Canal, Percutaneous Approach (ICD-10-PCS; 2017-09-19)
DX: O77.0 Labor and delivery complicated by meconium in amniotic fluid (principal); Z3A.39 39 weeks gestation of pregnancy; Z37.0 Single live birth; O99.02 Anemia complicating childbirth; D57.3 Sickle-cell trait; O76 Abnormality in fetal heart rate and rhythm complicating labor and delivery; O69.81X0 Labor and delivery complicated by cord around neck, without compression, not applicable or unspecified; D50.9 Iron deficiency anemia, unspecified
CPT/HCPCS: 36415; 85014; 85018; 85027; 86592; 86706; 86803; 86850; 86900; 86901; 88307; 99211; G0463; J0290; J0595; J2590

== ENCOUNTER 2019-01-08 17:22 | Inpatient (IN) | payer MEDICAID ==
[2019-01-08] MEDS ORDERED: XYLOCAINE 2% INFILTRATI ONE (18:35)
[2019-01-08] MEDS ORDERED: MINERAL OIL PO PRN (18:35)
[2019-01-08] MEDS ORDERED: SUBLIMAZE IV PRN (18:35)
[2019-01-08] MEDS ORDERED: BRETHINE IVP PRN (18:35)
[2019-01-08] MEDS ORDERED: PHENERGAN PO PRN ×2 (18:35→19:39)
[2019-01-08] MEDS ORDERED: STADOL IV PRN (18:35)
[2019-01-08] MEDS ORDERED: ZOFRAN IV PRN ×2 (18:35→19:39)
[2019-01-08] MEDS ORDERED: BRETHINE SUB-Q PRN (18:35)
[2019-01-08] MEDS ORDERED: AMPICILLIN/NS 2 GM/100 ML 2 GM/100 ML BAG IV ONE (18:35)
--- NOTE | 2019-01-08 18:35 | History and Physical Report ---
History of Present Illness Date of examination: 01/08/19 Chief complaint: Labor History of present illness: Pt is a 23yo BF EDC 01/10/19; EGA 39 5/7 weeks presents to L&D complaining of RUC's q 3-4 mins. She denies ROM or bleeding. She received care at [facility] since 14 weeks and course has been unremarkable. records are available and GBS is Negative. Past History Past Medical History: no pertinent history Past Surgical History: no surgical history Family/Genetic History: none Social history: no significant social history, single - Obstetrical History Expected Date of Delivery: 01/10/19 Actual Gestation: 39 Week(s) 5 Day(s) : 3 Medications and Allergies Allergies Allergy/AdvReac Type Severity Reaction Status Date / Time No Known Allergies Allergy Verified 10/09/16 06:50 Home Medications Medication Instructions Recorded Confirmed Last Taken Type Ondansetron [Zofran Odt] 4 mg PO QID PRN #20 tab.rapdis 10/09/16 Unknown Rx miSOPROStol [Cytotec] 400 mcg PO Q4HR #4 tablet 10/09/16 Unknown Rx Ferrous Sulfate [Feosol 325 MG tab] 325 mg PO BID #60 tablet 10/11/16 Unknown Rx Ferrous Sulfate [Feosol 325 MG tab] 325 mg PO BID #60 tablet 09/20/17 Unknown Rx Ibuprofen [Motrin 600 MG tab] 600 mg PO Q6HR #30 tablet 09/20/17 Unknown Rx Vit-Fe Fumar-FA [ 1 each PO QDAY #30 tablet 09/20/17 Unknown Rx Vitamin] Review of Systems All systems: negative - Physical Exam Breasts: Positive: deferred Cardiovascular: Regular rate Lungs: Positive: Clear to auscultation Abdomen: Positive: normal appearance Genitourinary (Female): Positive: normal external genitalia Vagina: Positive: normal moisture Uterus: Positive: enlarged Extremities: Positive: normal - Obstetrical FHR: category 1 Uterine Contraction Monitor Mode: External Cervical Dilatation: 5 (per nurse) Cervical Effacement Percentage: 80 (per nurse) station: -3 Uterine Contraction Pattern: Regular Uterine Tone Measurement Phase: Contraction Uterine Contraction Intensity: Strong/Firm Results Result Diagrams: 01/08/19 18:40 All other labs normal. Assessment and Plan - Patient Problems (1) 39 weeks gestation of Onset Date: 01/08/19 Current Visit: No Status: Resolved Plan to address problem: A: IUP @ 39 5/7 weeks in labor Anemia GBS Negative P: Admit to L&D for expectant vaginal delivery (2) Anemia Onset Date: 01/08/19 Current Visit: No Status: Chronic Qualifiers: Anemia type: iron deficiency
[2019-01-08] MEDS ORDERED: LACTATED RINGERS 1,000 ML IV SCH (19:00)
[2019-01-08] MEDS ORDERED: PITOCin/NS 30 UNIT/500ML 30 UNITS/500 ML BAG IV SCH ×2 (19:00)
[2019-01-08] MEDS ORDERED: PITOCin/NS 20 UNIT/1000ML DRIP 20 UNITS/1,000 ML BAG IV SCH ×2 (19:00→20:00)
[2019-01-08 19:07] LABS: Hematocrit 27.5 % (30.3-42.9); Hemoglobin 8.5 gm/dl (10.1-14.3); Mean Corpuscular HGB Conc 31 % (30-34); Platelet Count 384 K/mm3 (140-440); Red Cell Distribution Width 19.8 % (13.2-15.2)
[2019-01-08 19:11] LABS: Mean Corpuscular Volume 60 fl (79-97)
[2019-01-08] MEDS ORDERED: PHENERGAN PR PRN (19:39)
[2019-01-08] MEDS ORDERED: MILK OF MAGNESIA PO PRN (19:39)
[2019-01-08] MEDS ORDERED: LANSINOH TP PRN (19:39)
[2019-01-08] MEDS ORDERED: TYLENOL PO PRN (19:39)
[2019-01-08] MEDS ORDERED: NORCO 5/325 PO PRN (19:39)
[2019-01-08] MEDS ORDERED: TUCKS PAD TP PRN (19:39)
[2019-01-08] MEDS ORDERED: DULCOLAX PR PRN (19:39)
[2019-01-08] MEDS ORDERED: BENADRYL PO PRN (19:39)
--- NOTE | 2019-01-08 19:44 | Procedure Note ---
OB Delivery Note - Delivery Date of Delivery: 01/08/19 Surgeon: PATRICIA LI Estimated blood loss: <100cc - Vaginal Delivery presentation: vertex Delivery position: OA Intrapartum events: precipitous labor- <3hr Delivery induction: none Delivery augmentation: rupture of membranes Delivery monitor: external FHT, external uterine Route of delivery: Delivery placenta: spontaneous Delivery cord: 3 umbilical vessels Episiotomy: none Delivery laceration: none Anesthesia: none Delivery comments: delivered OA and placed on Mom's chest for [id number] bonding and delayed cord clamping, cut by Dad - A at 1 minute: 8 at 5 minutes: 9 Infant Gender: Female (2600gms)
[2019-01-08] MEDS ORDERED: SODIUM CHLORIDE FLUSH SYRINGE 10 ML IV SCH (20:00)
[2019-01-08] MEDS: IBUPROFEN PO SCH (20:49)
[2019-01-08] MEDS ORDERED: FEOSOL PO SCH (22:00)
[2019-01-08] MEDS ORDERED: COLACE PO SCH (22:00)
[2019-01-08] MEDS ORDERED: AMPICILLIN/NS 1 GM/50 ML 1 GM/50 ML BAG IV SCH (22:37)
[2019-01-09] MEDS: IBUPROFEN PO SCH ×3 (05:15→13:58)
[2019-01-09] MEDS ORDERED: BOOSTRIX IM ONE (06:00)
--- NOTE | 2019-01-09 08:47 | Progress Note ---
Assessment and Plan - Patient Problems (1) 39 weeks gestation of Onset Date: 01/08/19 Current Visit: No Status: Resolved (2) Anemia Onset Date: 01/08/19 Current Visit: No Status: Chronic Qualifiers: Anemia type: iron deficiency (3) (normal spontaneous vaginal delivery) Onset Date: 01/09/19 Current Visit: No Status: Resolved Plan to address problem: A: S/P - PPD #1 Doing well Asymptomatic anemia - stable P: May go home today. Subjective - Subjective Date of service: 01/09/19 Principal diagnosis: s/p - PPD #1 Interval history: Pt is feeling well without complaints. Bleeding improved. Patient reports: appetite normal, voiding normally, pain well controlled, flatus, ambulating normally, no dizzy ambulation, no nauseated : doing well, nursing well Objective - Vital Signs Latest vital signs: Vital Signs Temp Pulse Resp BP Pulse Ox 01/09/19 08:21 97.7 F 69 18 95/62 98 01/09/19 05:50 97.8 F 69 20 111/53 97 01/08/19 22:47 98.0 F 65 20 115/54 99 01/08/19 22:17 61 105/55 01/08/19 22:03 56 L 136/64 01/08/19 21:47 60 107/61 01/08/19 21:32 62 103/62 01/08/19 21:17 59 L 126/61 01/08/19 21:03 58 L 122/78 01/08/19 20:47 56 L 132/72 01/08/19 20:34 61 140/61 01/08/19 20:03 69 140/59 01/08/19 19:47 64 127/66 01/08/19 19:32 58 L 123/62 01/08/19 18:56 62 142/72 Intake and Output 01/08/19 01/09/19 01/09/19 22:59 06:59 14:59 Intake Total 720 Output Total 1000 Balance -280 Intake: Oral 720 Output: Urine 1000 Void 1000 Other: Total, Intake Amount 240 Total, Output Amount 300 Weight 90.718 kg Estimated Blood Loss 100 - Exam Breasts: Present: deferred Abdomen: Present: normal appearance, soft Uterus: Present: normal, firm, fundal height below umbilicus Extremities: Present: normal - Labs Labs: Abnormal lab results 01/08/19 Range/Units 18:40 WBC 16.5 H (4.5-11.0) K/mm3 Hgb 8.5 L (10.1-14.3) gm/dl Hct 27.5 L (30.3-42.9) % MCV 60 L (79-97) fl MCH 19 L (28-32) pg RDW 19.8 H (13.2-15.2) % Laboratory Tests 01/08/19 01/08/19 01/09/19 18:40 18:40 08:30 WBC 16.5 H RBC 4.60 Hgb 8.5 L 7.4 L Hct 27.5 L 24.0 L MCV 60 L MCH 19 L MCHC 31 RDW 19.8 H Plt Count 384 Blood Type A POSITIVE Antibody Screen Negative
[2019-01-09 09:21] LABS: Hemoglobin 7.4 gm/dl (10.1-14.3)
[2019-01-09] MEDS ORDERED: PRENATAL VITAMIN PO SCH (10:00)
--- NOTE | 2019-01-09 16:00 | Discharge Summary ---
Providers - Providers Date of Admission: 01/08/19 18:35 Date of discharge: 01/09/19 Attending physician: PATRICIA LI Primary care physician: PATRICIA LI Hospitalization Reason for admission: active labor, IUP at term Delivery: Episiotomy: none Laceration: none Other procedures: none complications: none Discharge diagnosis: IUP at term delivered [place] baby: female Hospital course: Unremarkable. Condition at discharge: Good Disposition: DC-01 TO HOME OR SELFCARE - Discharge Diagnoses (1) 39 weeks gestation of Status: Resolved (2) Anemia Status: Chronic Qualifiers: Anemia type: iron deficiency (3) (normal spontaneous vaginal delivery) Status: Resolved Plan - Discharge Medications Prescriptions: Ferrous Sulfate [Feosol 325 MG tab] 325 mg PO BID #60 tablet Ibuprofen [Motrin 600 MG tab] 600 mg PO Q6HR #30 tablet Vit-Fe Fumar-FA [ Vitamin] 1 each PO QDAY #30 tablet - Provider Discharge Summary Activity: routine, no sex for 6 weeks, no heavy lifting 4 weeks, no strenuous exercise Diet: routine Instructions: routine Additional instructions: [] Smoking cessation referral if applicable(refer to patient education folder for contact #) [] Refer to [facility]'s [facility] Booklet Call your doctor immediately for: * Fever > 100.5 * Heavy vaginal bleeding ( >1 pad per hour) * Severe persistent headache * Shortness of breath * Reddened, hot, painful area to leg or breast * Drainage or odor from incision. * Keep incision clean and dry at all times and follow doctor's instructions regarding bathing/showering - Follow up plan Follow up: PATRICIA LI MD [Primary Care Provider] - 6 Weeks
[2019-01-09] MEDS ORDERED: IBUPROFEN PO PRN (16:10)
[2019-01-09] MEDS ORDERED: M-M-R II VACCINE SUB-Q ONE (19:39)
[2019-01-09 21:50] VITALS: BP 121/78
== END 2019-01-09 21:50 | disposition home or self-care (01) | DRG 775 ==
LOC: TRG 17:22 → LD 18:35 → TRG 18:46 → OB 22:45
PROVIDERS: ADMIT Obstetrics & Gynecology; ATTEND Obstetrics & Gynecology
PROC: 10E0XZZ Delivery of Products of Conception, External Approach (ICD-10-PCS; principal; 2019-01-08)
PROC: 3E0234Z Introduction of Serum, Toxoid and Vaccine into Muscle, Percutaneous Approach (ICD-10-PCS; 2019-01-09)
DX: O62.3 Precipitate labor (principal); O99.02 Anemia complicating childbirth; D50.0 Iron deficiency anemia secondary to blood loss (chronic); Z3A.39 39 weeks gestation of pregnancy; Z37.0 Single live birth; Z23 Encounter for immunization
CPT/HCPCS: 36415; 85014; 85018; 85027; 86592; 86850; 86900; 86901; G0378; J0290; J2590; J3010; J7120

== ENCOUNTER 2019-04-03 06:24 | Day surgery (SDC) | payer MEDICAID ==
[~2019-04-03 06:24] MED LIST: CELECOXIB 200 MG CAP PO NR; GABAPENTIN 300 MG CAP PO NR; LACTATED RINGERS 1,000 ML IV SCH; MIDAZOLAM 2 MG/2 ML INJ IV NR
[2019-04-03] MEDS ORDERED: BACTERIOSTATIC SODIUM CHLORIDE 0.9% 30 ML VIAL INFILTRATI ONE (07:05)
[2019-04-03] MEDS ORDERED: ROCURONIUM 50 MG/5 ML INJ IV ONE (07:40)
[2019-04-03] MEDS ORDERED: LIDOCAINE MPF (2%) 20 MG/1 ML VIAL 5 ML ONE (07:40)
[2019-04-03] MEDS ORDERED: GLYCOPYRROLATE 0.4 MG/2 ML INJ ONE (07:40)
[2019-04-03] MEDS ORDERED: ONDANSETRON 4 MG/2 ML INJ ONE (07:40)
[2019-04-03] MEDS ORDERED: dexAMETHasone 20 MG/5 ML VIAL ONE (07:40)
[2019-04-03] MEDS ORDERED: NEOSTIGMINE 10MG/10 ML INJ MDV ONE (07:40)
[2019-04-03] MEDS ORDERED: PROPOFOL 200 MG/20 ML VIAL IV ONE (07:41)
[2019-04-03] MEDS ORDERED: fentaNYL 250 MCG/5 ML INJ ONE (07:41)
--- NOTE | 2019-04-03 07:49 | Anesthesia Day of Surgery ---
Anesthesia Day of Surgery - Day of Surgery Patient Examined: Yes Patient H&P Reviewed: Yes Patient is NPO: Yes
--- NOTE | 2019-04-03 07:50 | Anesthesia Consultation ---
Anesthesia Consult and Med Hx Date of service: 04/03/19 - Airway Anesthetic Teeth Evaluation: Good ROM Head & Neck: Adequate Mental/Hyoid Distance: Adequate Mallampati Class: Class II - Pre-Operative Health Status ASA Pre-Surgery Classification: ASA2 Proposed Anesthetic Plan: General - Pulmonary Hx Smoking: Yes Hx Asthma: No COPD: No Hx Pneumonia: No - Cardiovascular System Hx Hypertension: No - Central Nervous System Hx Seizures: No Hx Psychiatric Problems: No - Endocrine Hx Renal Disease: No Hx End Stage Renal Disease: No Hx Hypothyroidism: No Hx Hyperthyroidism: No - Hematic Hx Anemia: Yes Hx Sickle Cell Disease: Yes (Trait only) - Other Systems Hx Alcohol Use: No Hx Cancer: No
--- NOTE | 2019-04-03 07:58 | Short Stay Summary ---
Short Stay Documentation Date of service: 04/03/19 Narrative H&P: Pt is a 23yo BF s/p 01/08/19 presents for permanent sterilization - History Principal diagnosis: Desires permanent sterilization H&P: obtained from office Past Medical History: No medical history Past Surgical History: No surgical history Social history: no significant social history, single - Allergies and Medications Current Medications: Allergies No Known Allergies Allergy (Verified 04/02/19 11:34) Home Medications Medication Instructions Recorded Confirmed Last Taken Type No Known Home Medications [No 04/02/19 04/02/19 Unknown History Reported Home Medications] Active Medications Celecoxib (Celebrex) 200 mg PO PREOP NR Stop: 04/03/19 18:00 Gabapentin (Neurontin) 300 mg PO PREOP NR Stop: 04/03/19 18:00 Lactated Ringer's (Lactated Ringers) 1,000 mls @ 100 mls/hr IV DIRECT SCHUYLER Last Admin: 04/03/19 07:15 Dose: 100 mls/hr Documented by: Midazolam HCl (Versed) 2 mg IV PREOP NR Stop: 04/03/19 18:00 - Physical exam General appearance: no acute distress Integumentary: no rash HEENT: Atraumatic Lungs: Clear to auscultation Breasts: deferred Heart: Regular rate Gastrointestinal: normal Female Genitourinary: deferred Rectal Exam: deferred Extremities: no ischemia, No edema Neurological: Normal gait, Normal speech - Brief post op/procedure progress note Date of procedure: 04/03/19 Pre-op diagnosis: Desires permanent sterilization Post-op diagnosis: same Procedure: Laproscopic Bilateral Tubal Ligation Anesthesia: GETA Findings: Normal uterus. Normal tubes and ovaries bilaterally. Normal appendix. Surgeon: PATRICIA LI Estimated blood loss: minimal Pathology: none Condition: stable - Hospital course Hospital course: Unremarkable. - Disposition Condition at discharge: Good Disposition: DC- TO HOME OR SELFCARE - Discharge Diagnoses (1) Encounter for sterilization Status: Resolved Short Stay Discharge Plan Activity: no restrictions Diet: regular Wound: open to air, keep clean and dry Follow up with: LINCOLN FRANCOIS MD [Primary Care Provider] - 7 Days PATRICIA LI MD [Staff Physician] - 14 Days Prescriptions: HYDROcodone/APAP 5-325 [[place] 5/325] 1 each PO Q6HR PRN #20 tablet PRN Reason: Pain
[2019-04-03] MEDS ORDERED: BUPIVACAINE/PF (0.5%) 5 MG/1 ML 10 ML VIAL INFILTRATI ONE ×2 (08:08→10:38)
[2019-04-03 08:36] LABS: Hematocrit 31.2 % (30.3-42.9); Hemoglobin 9.7 gm/dl (10.1-14.3)
[2019-04-03] MEDS ORDERED: ceFAZolin/Water 2 GM/20 ML 2 GM/20 ML SYRINGE IV NR (09:00)
[2019-04-03] MEDS ORDERED: HYDROmorphone 1 MG/1 ML INJ IV PRN (09:06)
[2019-04-03] MEDS ORDERED: SODIUM CHLORIDE 0.9% IRR 1,500 ML BOTTLE IR ONE (10:38)
[2019-04-03] MEDS ORDERED: ePHEDrine SULFATE 50 MG/1 ML INJ ONE (10:44)
[2019-04-03] MEDS ORDERED: SUGAMMADEX SODIUM 200 MG/2 ML VIAL IV ONE (11:05)
--- NOTE | 2019-04-03 11:23 | Operative Report ---
Operative Report Operative Report: PREOPERATIVE DIAGNOSIS: Desires permanent sterilization POSTOPERATIVE DIAGNOSIS: Same OPERATIVE PROCEDURE: Laparoscopic bilateral tubal ligation. SURGEON: Sundar Bennett MD ANESTHESIA: Gen. endotracheal intubation ANESTHESIOLOGIST: Dr. Gallo ESTIMATED BLOOD LOSS: Minimal FINDINGS: A normal uterus with normal fallopian tubes and ovaries bilaterally. Normal appendix COMPLICATIONS: None COUNTS: Correct x3. PROCEDURE: After the patient was correctly identified and after general anesthesia was administered, the patient was prepped and draped in usual sterile fashion and placed in dorsal lithotomy position. First, the bladder was emptied using a straight catheter. Next, a speculum was placed in the vaginal vault and the anterior lip of the cervix was grasped using a single-tooth tenaculum. The uterine manipulator was then placed and the tenaculum and speculum were removed. Attention was then turned to the abdomen where first a periumbilical incision was made using a skin knife, and the Optiview trocar was inserted under direct visualization. After an adequate amount of abdominal insufflation, visualization of the pelvic organs found the uterus to be normal with normal fallopian tubes and ovaries bilaterally. Next, the left fallopian tube was grasped using the Kleppingers, and after identifying the fimbriated end of the left tube, this tube was cauterized in 3 continuous [address] along the proximal portion of the left tube. The same procedure was performed on the right fal lopian tube after first identifying the fimbriated end of the right tube, this tube was also cauterized in 3 continuous places along the proximal portion of the right tube. At this point, the procedure was then considered complete. All instruments were removed from the abdomen. The abdomen was deflated and the periumbilical incision was closed using 0 Vicryl suture in a [id number] configuration on the fascia, followed by 4-0 Monocryl suture in sub-cuticular fashion on the skin. The incision was also infiltrated using 0.5% Marcaine solution. The uterine manipulator was removed. The patient tolerated the procedure well and was transferred to recovery room stable condition.
[2019-04-03 12:31] VITALS: BP 113/60
--- NOTE | 2019-04-03 13:18 | Post Anesthesia Evaluation ---
- Post Anesthesia Evaluation Patient Participated: Yes Airway Patent: Yes Stable Respiratory Function: Yes Nausea/Vomiting: No Temp > 96.8F: Yes Pain Manageable: Yes Adequeate Hydration: Yes Anesthesia Complications: No
== END 2019-04-03 06:25 | disposition home or self-care (01) ==
LOC: OR 06:24
PROVIDERS: ATTEND Obstetrics & Gynecology
DX: Z30.2 Encounter for sterilization (principal); F17.210 Nicotine dependence, cigarettes, uncomplicated; Z79.899 Other long term (current) drug therapy
CPT/HCPCS: 36415; 58670; 81025; 85014; 85018; J0690; J1100; J2250; J2405; J2704; J2710; J3010; J7120